=== PATIENT | male | born 1950 | race Caucasian/White ===

== ENCOUNTER → 2016-12-24 | Outpatient (CLI) | payer OTHER ==
--- NOTE | 2016-12-24 20:41 | DX ---
3 Views of the Right Foot Reason for examination: Right mid foot pain times several months in a 66-year-old male; the initial r eport stated left foot, however, the patient indicated that the pain is in his right foot. Findings: A fracture or other acute osseous abnormality of the right foot is not identified. The bone alignment is normal. A plantar calcaneal spur is seen which can be associated with plantar fasciitis . Also mild degenerative changes are seen at the first metatarsophalangeal articulation. Impression: 1. Negative for acute osseous abnormality. 2. Plantar calcaneal spur. 3. See above report for additional findings.
== END ==
LOC: CIMAGING 18:51
PROVIDERS: ATTEND Family Medicine
DX: M79.671 Pain in right foot (principal); M77.31 Calcaneal spur, right foot
CPT/HCPCS: 73630-PO

== ENCOUNTER → 2019-03-15 | Outpatient (CLI) | payer OTHER | LOC: CIMAGING 15:30 | PROVIDERS: ATTEND Family Medicine | DX: N50.89 Other specified disorders of the male genital organs (principal); N50.3 Cyst of epididymis | CPT/HCPCS: 76870-PO ==